=== PATIENT | male | born 1990 | race Caucasian/White ===

== ENCOUNTER 2018-07-09 19:38 | Emergency (ER) | payer MEDICAID, SELFPAY ==
[~2018-07-09] VITALS: Ht 170.2 cm; Wt 79.4 kg
[~2018-07-09 19:38] MED LIST: KEFLEX500 MG ORAL; NKM
[2018-07-09 20:00] VITALS: BP 98/61
[2018-07-09] MEDS ORDERED: CEPHALEXIN500 MG ORAL (20:49)
[2018-07-09] MEDS ORDERED: BACTRIM DS TAB1 EAC1 ORAL (20:49)
[2018-07-09] MEDS ORDERED: IBUPROFEN600 MG ORAL (20:49)
[2018-07-09 21:00] VITALS: BP 98/61
--- NOTE | 2018-07-09 23:40 | Emergency Room Report ---
History of Present Illness General Chief Complaint: Skin Rash/Abscess Source: Patient Present Illness HPI 27-year-old male presents ED for evaluation. States that he noticed a "cyst" on his left buttocks for the last 2 days. States that it is hard and painful. 8 out of 10, throbbing, nonradiating. Worse with sitting. Denies fevers or chills. Denies any discharge. No other aggravating relieving factors. Denies any other associated symptoms Allergies: Coded Allergies: OPIOIDS - MORPHINE ANALOGUES (Verified Allergy, Mild, 04/05/14) COPIED FROM UNCODED SECTION Patient History Past Medical History: other - HepC Past Surgical History: none Pertinent Family History: none Social History: Denies: smoking, alcohol use, drug use Immunizations: UTD Reviewed Nursing Documentation: PMH: Agreed; PSxH: Agreed Nursing Documentation-PMH Past Medical History: No Stated History Hx Gastrointestinal Problems: Yes - HEP C Review of Systems All Other Systems: negative except mentioned in HPI Physical Exam Vital Signs Date Time Temp Pulse Resp B/P (MAP) Pulse Ox O2 Delivery O2 Flow Rate FiO2 07/09/18 19:49 98.4 83 16 98/61 98 Room Air 98.4 Sp02 EP Interpretation: reviewed, normal General Appearance: no apparent distress, alert, GCS 15, non-toxic Head: normocephalic Eyes: bilateral eye normal inspection, bilateral eye PERRL ENT: normal ENT inspection Neck: normal inspection Respiratory: normal inspection Cardiovascular #1: normal inspection Gastrointestinal: normal inspection Rectal: deferred Genitourinary: normal inspection Musculoskeletal: normal inspection Neurologic: alert, oriented x3, responsive, motor strength/tone normal, sensory intact, speech normal Psychiatric: judgement/insight normal, memory normal, mood/affect normal, no suicidal/homicidal ideation Skin: other - 1cm area of fluctuance to L buttock, surrounding erythema Lymphatic: normal inspection Medical Decision Making Diagnostic Impression: Primary Impression: Abscess of buttock ER Course Hospital Course 27-year-old male presents to ED with pain/swelling L buttock Differential diagnoses include: Cellulitis, dermatitis, insect bite, abscess Clinical course Patient placed on stretcher. After initial history, physical exam reveals a young male in no acute distress. On exam there is a area of fluctuance to the left buttock. Surrounding erythema. No discharge. Insistent with an abscess. I discussed with patient option for I&D. Patient declined stating he would like to try antibiotics first I instructed on warm soaks, antibiotics. If symptoms unimproved patient will require coming back to the ER for I&D Diagnosis - absess of buttock stable and discharged to home with prescription for bactrim, Keflex. warm soaks. Instructed to followup with PMD. Instructed return to ED if symptoms recur or worsen Last Vital Signs Date Time Temp Pulse Resp B/P (MAP) Pulse Ox O2 Delivery O2 Flow Rate FiO2 07/09/18 19:49 98.4 83 16 98/61 98 Room Air 98.4 Status: improved Disposition: HOME, SELF-CARE Condition: Stable Scripts Ibuprofen* (MOTRIN*) 600 Mg Tablet 600 MG ORAL Q8H PRN for For Pain, #30 TAB 0 Refills Prov: Helder Giordano MD 07/09/18 Trimethoprim/Sulfamethoxazole 160/800* (BACTRIM DS TABLET*) 1 Each Tablet 1 TAB ORAL Q12H, #14 TAB 0 Refills Prov: Helder Giordano MD 07/09/18 Cephalexin* (KEFLEX*) 500 Mg Capsule 500 MG ORAL EVERY 6 HOURS for 7 Days, CAP Prov: Helder Giordano MD 07/09/18 Referrals: NOT CHOSEN IPA/,REFERRING (PCP) Patient Instructions: Abscess Additional Instructions: warm soaks in tub. take abx as prescribed. Helder Giordano MD Jul 09, 2018 23:40
== END 2018-07-09 21:00 | disposition home or self-care (01) ==
LOC: EMR 20:21
DX: L02.31 Cutaneous abscess of buttock (principal); B19.20 Unspecified viral hepatitis C without hepatic coma; Z88.5 Allergy status to narcotic agent; Z88.6 Allergy status to analgesic agent; Z53.29 Procedure and treatment not carried out because of patient's decision for other reasons
CPT/HCPCS: 99283